=== PATIENT | male | born 1990 | race Caucasian/White ===

== ENCOUNTER 2017-09-28 13:21 | Day surgery (SDC) | payer OTHER ==
[~2017-09-28 13:21] MED LIST: CEFAZOLIN 2 GM/50 ML (PMX) 50 ML IVPB; SOD CHLORIDE 0.9% 1,000 ML IV
[2017-09-28] MEDS ORDERED: PROPOFOL 20 ML (17:02)
[2017-09-28] MEDS ORDERED: ONDANSETRON 4 MG INJ (17:03)
[2017-09-28] MEDS ORDERED: FENTAnyl 50 MCG/ML VIAL ×2 (17:03→17:05)
[2017-09-28] MEDS ORDERED: METOCLOPRAMIDE 10 MG INJ (17:03)
[2017-09-28] MEDS ORDERED: MIDAZOLAM 1 MG/ML 2 ML INJ (17:04)
[2017-09-28] MEDS ORDERED: CEFAZOLIN 1 GM INJ (17:23)
[2017-09-28] MEDS ORDERED: HYDROmorphONE 2 MG/ML SYG (17:23)
[2017-09-28] MEDS ORDERED: OXYCODONE/ACETAMINOPHEN (5/325) TAB PO (17:30)
[2017-09-28] MEDS ORDERED: HYDROmorphONE (0.2 MG/ML) 10ML SYG IV ×3 (17:30)
[2017-09-28] MEDS: BUPIVACAINE 0.25% (MPF) 30 ML INJ (17:52)
[2017-09-28] MEDS ORDERED: ROPIVACAINE 0.5 % 30 ML VIAL (17:57)
[2017-09-28] MEDS ORDERED: HYDROCODONE/APAP (5/325) TAB PO (18:30)
[2017-09-28] MEDS: ONDANSETRON 4 MG INJ IV (18:48)
[2017-09-28] MEDS: OXYCODONE/ACETAMINOPHEN (5/325) TAB PO (18:48)
== END 2017-09-28 20:27 | disposition home or self-care (01) ==
LOC: SDS 13:21
DX: K40.90 Unilateral inguinal hernia, without obstruction or gangrene, not specified as recurrent (principal)
CPT/HCPCS: 49505